=== PATIENT | female | born 1935 | race Caucasian/White ===

== ENCOUNTER 2017-08-18 11:22 | Observation (INO) | payer MEDICARE ==
[~2017-08-18] VITALS: Ht 162.6 cm; Wt 65.5 kg
[2017-08-18] VITALS (8 sets, daily range): BP systolic 83–181; BP diastolic 52–85; PULSE 78–91; RESP 16–27; O2SAT 92–96
[~2017-08-18 11:22] MED LIST: Acetaminophen PO; CARB1TAB14 PO; CEFU500T61 PO; CHOL100043 PO; CLOP75TA28 PO; DENO60DI IM; FLUT16SP NASAL; LOSA25TA21 PO; RANI150C4 PO
--- NOTE | 2017-08-18 11:25 | ED.REPORT ---
HPI-General Illness Date of Service Aug 18, 2017 ED Provider: Jose Martin Angel MD An 82 year old female with a history of Parkinson's disease, CVA, anxiety, hypertension, pneumonia and UTI is brought to the ED via EMS due to increasing weakness, which has been especially pronounced over the last two days. The pt has been having progressively more difficulty walking in recent weeks and has required a wheelchair. This morning she was unable to transfer herself from the wheelchair at all, which is abnormal for her. The pt's also reported that the pt was hallucinating and "speaking gibberish" yesterday, which he suspects is related to her Parkinson's disease. She displayed similar behavior one month ago and was evaluated in the ED. The pt's called their PCP, who recommended that they call paramedics. The pt lives at home with her and caregivers. Nursing Notes Stated Complaint: INCREASED WEAKNESS Chief Complaint: General Complaint Nursing Notes Reviewed: Yes Allergies: Coded Allergies: Penicillins (Verified Allergy, Severe, not effective after many doses, ) Quinolones (Verified Allergy, Severe, tongue swelling,tingling all over body, 07/16/15) atenolol (Verified Allergy, Severe, very dizzy, 07/16/15) ciprofloxacin (Verified Allergy, Severe, Interior burning, 04/23/16) guaifenesin (Verified Allergy, Severe, hallucinate, 04/18/12) hydrochlorothiazide (Verified Allergy, Severe, very dizzy, 04/18/12) hydrocodone (Verified Allergy, Severe, hallucinate. Tolerates codeine, 18/11) iodine (Verified Allergy, Severe, 07/17/15) meperidine (Verified Allergy, Severe, hallucinate, 04/18/12) metronidazole (Verified Allergy, Severe, swelling tongue,tingling all over body, 04/18/12) cyanocobalamin (vitamin B12) (Verified Allergy, Unknown, 07/16/15) oxycodone HCl (Verified Allergy, Unknown, UNKNOWN, 04/18/12) Uncoded Allergies: Hycotuss (Allergy, Severe, 07/17/15) hallucinations Scheduled ([D-Mannosen CranActin]) 1 CAPSULE PO QAM Acetaminophen (Acetaminophen) 325 Mg Tablet 650 MG PO BID and PRN Aspirin (Aspirin) 81 Mg Tablet 81 MG PO QAM Carbidopa/Levodopa 25-100 mg (Carbidopa/Levodopa 25-100 mg) 1 Each Tablet 2 TABLET PO QAM and QPM Carbidopa/Levodopa 25-100 mg (Carbidopa/Levodopa 25-100 mg) 1 Each Tablet 1.5 TABLET PO NOON Cholecalciferol (Vitamin D3) (Vitamin D3) 2,000 Unit Tablet 2,000 UNIT PO BID Fluticasone Propionate (Fluticasone Propionate Nasal) 16 Gm Agency.susp 1 SPRAY NASAL QAM Losartan Potassium (Losartan Potassium) 25 Mg Tablet 25 MG PO BID Ranitidine (Ranitidine) 150 Mg Capsule 150 MG PO BID General Time Seen by MD: 11:24 Chief Complaint Weakness Hx Obtained From: Patient, Spouse, EMS Arrived By: Ambulance Sudden in Onset?: No Onset Occurred: 2 days ago Symptom Duration: Since onset Recent Healthcare: Recent doctor visit Similar Sx Previous: No Past Medical History Past Medical History Notes: Patient's orthopedist is Dr. Moura Past Medical History PAST MEDICAL HISTORY: 1. Osteoporosis. 2. Lumbar compression fractures. 3. Parkinson's. 4. Anxiety. 5. Transient cereberal ischemia 6. basal cell carcinoma of skin 7. CVA 8. Arthritis 9. Pneumonia 10. Kidney stones 11. UTI 12. Depression Reports: Hypertension Past Surgical History L4 Kyphoplasty with cement bone injection Additional 2 kyphoplasties in thoracic spine Right foot and ankle Left elbow Reports: Cholecystectomy, Hysterectomy Smoking History Never Smoker Social History Alcohol Use: "Social" Drug Use: Denies drug use Other Social History: Good social support, Ambulatory Status Cane Review of Systems difficulty speaking Full Review of Systems Respiratory: Denies: Non-productive cough, Shortness of breath Cardiovascular: Denies: Chest pain GI: Denies: Abdominal pain, Vomiting Musculoskeletal: Denies: Back pain, Neck pain Skin: Denies Rash Neurologic: Reports: Weakness Psychiatric: Reports: Hallucinations, auditory, Hallucinations, visual Complete sys rev & neg: except as marked. Physical Exam Vital Signs Vital Signs Date Time Temp Pulse Resp B/P Pulse Ox O2 Delivery O2 Flow Rate FiO2 08/18/17 13:30 36.6 84 22 102/52 94 Room Air 08/18/17 12:28 89 24 83/59 93 Room Air 08/18/17 11:25 36.6 91 27 107/63 92 Initial VS: Reviewed General/Constitutional: Awake, Alert Head / Eyes: Atraumatic, Normocephalic, PERRL, EOMI ENT: Atraumatic, Airway patent, Mucous membranes moist Neck: Atraumatic, Supple, Full range of motion Respiratory / Chest: Atraumatic, Breath sounds NL, Breath sounds = bilat, No respiratory distress Cardiovascular: Heart rate NL, Regular rhythm, Heart sounds NL Abdomen: Atraumatic, Soft, Non-tender Back: Atraumatic, Full range of motion Upper Extremities Upper Extremity / MS: Atraumatic, Full range of motion Lower Extremity / Pelvis / MS: Atraumatic, Full range of motion Skin: Color NL, No rash, Warm, Dry Neurologic: Speech NL, No motor deficits, No sensory deficits left lower extremity drift oriented to person and place, not oriented to time Psychiatric: Affect NL, Mood NL Interpretation & Diagnostics Lab Results Interpretation Result Diagram: 08/18/17 1217 08/18/17 1217 Test 08/18/17 11:33 08/18/17 12:17 Urine Color Straw (YELLOW) Urine Appearance Hazy (CLEAR,HAZY) Urine pH 6.0 (5.0-8.0) Urine Specific [place] 1.005 (1.003-1.035) Urine Protein Negativemg/dL (NEG,TRACE) Urine Glucose (UA) Negativemg/dL (NEGATIVE) Urine Ketones Negativemg/dL (NEGATIVE) Urine Occult Blood Negative (NEGATIVE) Urine Nitrite Negative (NEGATIVE) Urine Bilirubin Negative (NEGATIVE) Urine Urobilinogen Normalmg/dL (NORMAL) Urine Leukocyte Esterase Negative (NEGATIVE) Urine RBC 0-2/hpf (0-2) Urine WBC 0-5/hpf (0-5) Urine Epithelial Cells Occasional/hpf (NONE-MOD) Urine Crystals None seen (NONE SEEN) Urine Bacteria Moderate/hpf (NONE-FEW) Urine Hyaline Casts None/lpf (NONE) Urine Granular Casts None seen (NONE SEEN) Urine Waxy Casts None seen (NONE SEEN) Urine Red Blood Cell Casts None seen (NONE SEEN) Urine White Blood Cell Casts None seen (NONE SEEN) Urine Mucus Present (None Seen) Urine Trichomonas None seen (NONE SEEN) Urine Yeast None (NONE SEEN) Urinalysis Comment None Urine Culture Reflexed Indicated Hold Urine Received (Received) White Blood Count 8.2th/mm3 (3.8-10.1) Red Blood Count 4.21mil/mm3 (3.90-5.20) Hemoglobin 14.0g/dL (12.0-15.6) Hematocrit 41.5% (35.0-46.0) Mean Corpuscular Volume 98.6fL (81-100) Mean Corpuscular Hemoglobin 33.3pg (27.0-35.0) Mean Corpuscular Hemoglobin Concent 33.7% (32.0-37.0) Red Cell Distribution Width 13.4% (12.3-15.4) Platelet Count 299bil/L (150-400) Neutrophils (%) (Auto) 75.1% (40-74) Lymphocytes (%) (Auto) 16.7% (14-46) Monocytes (%) (Auto) 7.5% (4-12) Eosinophils (%) (Auto) 0.2% (0-5) Basophils (%) (Auto) 0.4% (0-3) Prothrombin Time 10.3sec (8.1-12.5) Prothromb Time International Ratio 0.96ratio Sodium Level 140mEq/L (134-144) Potassium Level 4.3mEq/L (3.5-5.2) Chloride Level 102mEq/L (97-108) Carbon Dioxide Level 22mmol/L (18-29) Blood Urea Nitrogen 14mg/dL (8-27) Creatinine 0.63mg/dL (0.57-1.00) Estimat Glomerular Filtration Rate 129mL/min (>59) Glucose Level 146mg/dL (60-99) Calcium Level 9.3mg/dL (8.5-10.1) Total Bilirubin 0.4mg/dL (0.0-1.2) Aspartate Amino Transf (AST/SGOT) 10U/L (0-50) Alanine Aminotransferase (ALT/SGPT) 5U/L (0-32) Alkaline Phosphatase 93U/L (25-165) Troponin T 0.010ug/L (0.0-0.011) Total Protein 6.4g/dL (6.4-8.4) Albumin 4.0g/dL (3.4-5.0) Hold Glass Top Tube Received (Received) ECG Interpretation ECG Interpretation: normal sinus rhythm with a rate of [address]/T changes Time: 12:19 Interpreted by: ED physician CT Head Interpretation IMPRESSION: No acute intracranial disease process. Dictated by: Daysi Kingsley MD, PhD on 08/18/2017 at 11:51 Approved by: Daysi Kingsley MD, PhD on 08/18/2017 at 11:55 Interpretation / Wet Read by: Interpret - Radiologist Re-Eval/Medical Decision Med Decision/Clinical Course 82-year-old female history of Parkinson's presenting with slurred speech for 20 seconds as stated. Also with progressive worsening of gait and lower extremity strength over the last couple weeks. Her left lower extremity does have drift. Also with history of dementia. History per . CT scan of acute pathology. Labs are unremarkable. Cannot rule out TIA yesterday. Cannot rule out worsening of Parkinson's. Patient will be admitted for altered mental status workup TIA stroke workup Source of Hx: Old records Time of Eval: 13:45 Patient Status: Condition improved Re-Evaluation/Progress Note: Pt rechecked, who is resting. Radiology, diagnosis and plan for admission are discussed. The pt understands and agrees with the plan. All questions are addressed at this time. Consultation : Referral / Consult Name: Constantino Small MD Consulted With: Hospitalist Call Returned at: 13:51 [employer] Manager: Agrees with eval, Agrees with plan, Accepts admit Note: Spoke with Dr. Small, hospitalist, regarding pt's case. Dr. Small agrees with the evaluation and agrees to admit the pt. Counseled Regarding: Diagnosis, Lab results, Need for admission Discharge & Departure Primary Impression: TIA (transient ischemic attack) Transient cerebral ischemia type: unspecified Qualified Code: G45.9 - Transient cerebral ischemic attack, unspecified Disposition: ADMITTED TO HOSPITAL Discharge Condition All VS Reviewed: Yes Condition: Stable Referrals: Erin Dover MD (PCP) Scribe Attestation Portions of this note were transcribed by Norma Persaud. I, Dr. Angel personally performed the history, physical exam and medical decision-making; I reviewed and confirmed the accuracy of the information in the transcribed note. copies to: Erin Dover MD Risk Factors NIH Stroke Scale Level of Consciousness: Alert and responsive (0) Ask Month & Age: 1 question right (1) Open/Close Eyes/Hand Banking Representative: Performs both tasks (0) Horizontal EO Movements: None (0) Visual Avery: No visual loss (0) Facial Palsy: Normal symmetry (0) Right Arm Motor Drift (10s): No drift 10 sec (0) Left Arm Motor Drift (10s): No drift 10 sec (0) Right Leg Motor Drift (5s): No drift 5 sec (0) Left Leg Motor Drift (5s): Drift, not touch bed (1) Limb Ataxia FNF/Heel-Green: No ataxia (0) Sensation (Arms/Legs/Face): No sensory loss (0) Language Aphasia: No aphasia, normal (0) Dysarthria: No dysarthria, normal (0) Extinction/Inattention: No exctinct/inattent (0) NIHSS Score: 2 Time NIHSS Performed: 11:35 Date NIHSS Performed: Aug 18, 2017 Jose Martin Angel MD Aug 18, 2017 11:25 NORMA PERSAUD Aug 18, 2017 11:45
[2017-08-18] MEDS ORDERED: 0.9% Sodium Chloride 250 ML ONE (12:23)
[2017-08-18 12:25] LABS: BASOPHILS % (AUTO) 0.4 % (0-3); EOSINOPHILS % (AUTO) 0.2 % (0-5); MONOCYTES % (AUTO) 7.5 % (4-12); Mean Corpuscular Hemoglobin 33.3 pg (27.0-35.0); Mean Corpuscular Volume 98.6 fL (81-100); NEUTROPHILS % (AUTO) 75.1 % (40-74); Platelet Count 299 bil/L (150-400)
[2017-08-18 12:45] LABS: INR 0.96 ratio
[2017-08-18 12:52] LABS: TROPONIN T 0.01 ug/L (0.0-0.011)
--- NOTE | 2017-08-18 12:57 | DRSVH ---
PROCEDURE: CT BRAIN WITHOUT CONTRAST ([id number]) INDICATIONS: dysarthria TECHNIQUE: Noncontrast 4.5 mm thick angled axial sections acquired from the foramen magnum to the vertex, with c oronal reformats. COMPARISON: [facility], CT, CT BRAIN WO CON, 07/22/2016, 21:07. FINDINGS: Image quality: Excellent. CSF spaces: Basal cisterns are patent. No extra-axial fluid collections. The ventricles are symmet nader in size and shape. Brain: No intracranial bleeds or masses. There is cerebral volume loss for age, with resultant vent ricular and sulcal prominence. There are periventricular and deep white matter chronic small vessel ischemic changes. Chronic left cerebellar hemisphere lacunar infarct noted. There is intracranial in ternal carotid artery and vertebral artery atherosclerosis. Skull and face: Calvarium and visualized facial bones appear intact, without suspicious lesions. Sinuses: Visualized sinuses and mastoids are clear. IMPRESSION: No acute intracranial disease process. Dictated by: Daysi Kingsley MD, PhD on 08/18/2017 at 11:51 Approved by: Daysi Kingsley MD, PhD on 08/18/2017 at 11:55
[2017-08-18] MEDS ORDERED: CHOL200025 PO (13:36)
[2017-08-18] MEDS ORDERED: ASPI-973 PO (13:36)
[2017-08-18] MEDS ORDERED: ACET325T51 PO (13:36)
[2017-08-18] MEDS ORDERED: [UNRECOGNIZED DRUG - OTHER] PO (13:36)
[2017-08-18] MEDS ORDERED: Alum-Mag Hydrox-Simeth 30 mL Suspension PO PRN (13:55)
[2017-08-18] MEDS ORDERED: Ondansetron 2 mg/mL 2 mL Inj IVPUSH PRN (13:55)
[2017-08-18] MEDS ORDERED: Labetalol 5 mg/mL 20 mL Inj IVPUSH PRN (14:10)
[2017-08-18] MEDS ORDERED: Polyethylene Glycol (PEG) 17 Gm Powder PO PRN (14:10)
[2017-08-18 14:12] LABS: APPEARANCE,URINE HAZY (CLEAR,HAZY); COLOR,URINE STRAW (YELLOW); OCCULT BLOOD,URINE NEGATIVE (NEGATIVE); UROBILINOGEN,URINE NORMAL (NORMAL)
--- NOTE | 2017-08-18 15:23 | NUR ---
NUTRITION ASSESSMENT: ASSESS: 82YO F admit for CVA v TIA v worsening parkinsons workup. ST eval pending. PMHX: Parkinson,CVA,HTN,Pna,UTI DIET: NPO LABS: Glu 146, A1c pending MEDS: Reviewed GI: No BM WEIGHT: 65.0kg BMI: 24.6 EST.NEEDS: 1600-1950kcal, 65-80g pro (25-30kcal/kg;1.0-1.2g/kg pro) NUTRITION DIAGNOSIS: (1) No diagnosis at this time. INTERVENTION: (1) Monitor for diet advancement, diet texture recommendations per ST. MONITOR/EVALUATE: Diet per ST, NPO status, labs, POC. F/U per moderate risk.
[2017-08-18 15:59] LABS: BASOPHILS % (AUTO) 0.3 % (0-3); EOSINOPHILS % (AUTO) 0.1 % (0-5); MONOCYTES % (AUTO) 10.4 % (4-12); Mean Corpuscular Hemoglobin 32.9 pg (27.0-35.0); Mean Corpuscular Volume 98.6 fL (81-100); Platelet Count 281 bil/L (150-400)
[2017-08-18] MEDS: Heparin 5,000 Unit/mL Inj SUBQ SCH (16:01)
[2017-08-18] MEDS: 0.9% Sodium Chloride 1,000 ML IV SCH (16:01)
--- NOTE | 2017-08-18 16:35 | NUR ---
Shift Note Patient received this afternoon around 1415 from ED for observation of possible stroke/TIA and stroke w/u and r/o. Patient with generalized weakness but thorough neuro exam does not show any significant findings, A & O x 3. Weakness in extremities equal on both sides. Had CT & MRI today. Speech therapy cleared her for thin liquids and a soft diet. She is a max 2 person assist to the commode. at .
--- NOTE | 2017-08-18 16:44 | PCM.HPMED ---
Subjective Date of Service Aug 18, 2017 Primary Provider: Admitting Physician: Constantino Small MD Primary Care Physician: Erin Dover MD Attending Physician: Constantino Small MD Admit Status: From the Emergency Department, 23-Hour Observation, Admit to [facility] Team Chief Complaint: Lower extremity weakness. . History of Present Illness: Deana Allan is an 82-year-old female with a past medical history significant for hypertension, Parkinson's disease, CVA, severe osteoporosis with multiple fractures including recent sacral and pelvic who presented to [facility] emergency department via EMS due to progressive weakness 2 days. The patient has a long-standing history of severe osteoporosis and was active with physical therapy until 3 months ago when she endured a sacral and pelvic fracture and was instructed by her orthopedic physician not to ambulate for an unclear amount of time. Since that time the patient has discontinued physical therapy and has had progressive weakness and is wheelchair bound. This morning she was unable to transfer herself from the wheelchair at all which is abnormal for her. The patient's also reported that she was speaking "gibberish" or word salad yesterday afternoon 08/17/2017 around 1500 for 20-30 minutes, which he suspects is related to her Parkinson's disease. She displayed similar behavior one month ago and was evaluated in the ED. The patients called her assembly inspector who recommended that they call paramedics. The patient lives at home with her and caregivers. She denies headache, vision changes, lightheadedness or dizziness, sore throat, cough chest pain, shortness of breath, abdominal pain, nausea, vomiting, fever, chills, dysuria, diarrhea or constipation. She does endorse chronic acid reflux and burning in her epigastrium in the mornings. Vital signs in the ER: Temperature 36.6. Pulse 84. Respiratory rate 22. Blood pressure 102/52. Pulse ox 94% on room air. She was given a 250 mL bolus of NS in the ED. PCP is Dr. Erin Dover. . Review of Systems: A comprehensive review of systems was conducted with the patient and found to be negative except as above in the History of Present Illness. . Allergies Coded Allergies: Penicillins (Verified Allergy, Severe, not effective after many doses, ) Quinolones (Verified Allergy, Severe, tongue swelling,tingling all over body, 07/16/15) atenolol (Verified Allergy, Severe, very dizzy, 07/16/15) ciprofloxacin (Verified Allergy, Severe, Interior burning, 04/23/16) guaifenesin (Verified Allergy, Severe, hallucinate, 04/18/12) hydrochlorothiazide (Verified Allergy, Severe, very dizzy, 04/18/12) hydrocodone (Verified Allergy, Severe, hallucinate. Tolerates codeine, 18/11) iodine (Verified Allergy, Severe, 07/17/15) meperidine (Verified Allergy, Severe, hallucinate, 04/18/12) metronidazole (Verified Allergy, Severe, swelling tongue,tingling all over body, 04/18/12) cyanocobalamin (vitamin B12) (Verified Allergy, Unknown, 07/16/15) oxycodone HCl (Verified Allergy, Unknown, UNKNOWN, 04/18/12) Uncoded Allergies: Hycotuss (Allergy, Severe, 07/17/15) hallucinations Home Medications Acetaminophen 650 mg twice a day. Aspirin 81 mg daily. Carbidopa/levodopa 96486 mg 2 tablets every morning, 1.5 tablet at noon and 2 tablets every evening. Fluticasone 1 spray intranasally daily. Losartan 25 mg twice a day. Ranitidine 150 mg twice a day. Tums PRN for acid reflux. Vitamin D3 2000 international units twice a day. D-Mannosen CranActin 1 tablet daily. . PMH 1. Severe osteoporosis with multiple fractures including ribs, compression fractures of lumbar and thoracic spine, 2 left hip fractures, sacral fracture and pelvic fracture. 2. Hypertension. 3. Parkinson's disease. 4. Anxiety. 5. Transient cerebral ischemia. 6. Basal cell carcinoma of skin. 7. CVA. 8. Osteoarthritis. 9. Pneumonia. 10. Nephrolithiasis. 11. Urinary tract infection with bacteremia on IV antibiotics 3 months. 12. Depression. 13. Vitamin D deficiency. 14. Allergic rhinitis. 15. GERD. . Surgical History 1. L4 kyphoplasty with cement bone injection and 2 kyphoplasty's and thoracic spine. 2. Right foot and ankle 3. Left elbow 4. Cholecystectomy. 5. Hysterectomy with bilateral salpingo-oophorectomy . Family History Father who had heart disease. Mother who of Alzheimer's disease. Sister who of liver cancer at 66 years old. . Social History Hx Alcohol Use: Yes (4 onces of wine every evening) Hx Substance Use: No Hx Tobacco Use: Yes Smoking Status: Former Smoker (1 PPD x 30 years) Additional Information She is . She has 1 son and 1 daughter who are both healthy. Exam Vital Signs Vital Sign - Last Date Time Temp Pulse Resp B/P Pulse Ox O2 Delivery O2 Flow Rate FiO2 08/18/17 13:30 36.6 84 22 102/52 94 Room Air Exam General: Elderly thin female lying in bed in no acute distress, well-developed, well-nourished, appropriately interactive. HEENT: Normocephalic, atraumatic. External ears without defect. Pupils equal, round, and reactive to light. Anicteric sclerae, moist conjunctivae, and no lid lag. Oropharynx free of erythema and cobble stoning with moist mucosa. Neck: Supple with full range of motion. No jugular venous distension. No bruits. No lymphadenopathy or thyromegaly. Cardiovascular: Regular rate and rhythm without murmurs, rubs, or gallops appreciated Pulmonary: Clear to auscultation bilaterally with no crackles, wheezes, or rhonchi. Normal respiratory effort with no use of accessory muscles. Abdomen: Bowel tones present. Soft, nontender, nondistended. No hepatosplenomegaly or masses appreciated. Extremities: No clubbing, cyanosis, or edema. Generalized muscle weakness +4 out of 5 in both upper and lower extremities. Skin: Normal temperature, turgor, and texture; no rash, ulcers, or subcutaneous nodules appreciated. Neurological: Cranial nerves grossly intact. No dysmetria or motor drift. Normal plantar reflexes bilaterally. Reflexes, coordination, and sensory function within normal limits. Known gait impairment and severe deconditioning. Psychiatric: Normal mood and affect. Alert and oriented to person, place, and time. . Lab and Diagnostics Labs Item Value Date Time Urine Color Straw 08/18/17 1133 Urine Appearance Hazy 08/18/17 113 Urine pH 6.0 08/18/17 1133 Urine Specific [place] 1.005 08/18/17 1133 Urine Protein Negative mg/dL 08/18/17 1133 Urine Glucose (UA) Negative mg/dL 08/18/17 113 Urine Ketones Negative mg/dL 08/18/17 1133 Urine Occult Blood Negative 08/18/17 1133 Urine Nitrite Negative 08/18/17 1133 Urine Bilirubin Negative 08/18/17 1133 Urine Urobilinogen Normal mg/dL 08/18/17 1133 Urine Leukocyte Esterase Negative 08/18/17 1133 Urine RBC 0-2 /hpf 08/18/17 1133 Urine WBC 0-5 /hpf 08/18/17 1133 Urine Epithelial Cells Occasional /hpf 08/18/17 1133 Urine Crystals None seen 08/18/17 1133 Urine Bacteria Moderate /hpf 08/18/17 1133 Urine Hyaline Casts None /lpf 08/18/17 1133 Urine Granular Casts None seen 08/18/17 1133 Urine Waxy Casts None seen 08/18/17 1133 Urine Red Blood Cell Casts None seen 08/18/17 1133 Urine White Blood Cell Casts None seen 08/18/17 1133 Urine Mucus Present 08/18/17 1133 Urine Trichomonas None seen 08/18/17 1133 Urine Yeast None 08/18/17 1133 Urinalysis Comment None 08/18/17 1133 Urine Culture Reflexed Indicated 08/18/17 1133 Item Value Date Time Prothrombin Time 10.3 sec 08/18/17 1217 Prothromb Time International Ratio 0.96 ratio 08/18/17 1217 Item Value Date Time Calcium Level 9.3 mg/dL 08/18/17 1217 Total Bilirubin 0.4 mg/dL 08/18/17 1217 Aspartate Amino Transf (AST/SGOT) 10 U/L 08/18/17 1217 Alanine Aminotransferase (ALT/SGPT) 5 U/L 08/18/17 1217 Alkaline Phosphatase 93 U/L 08/18/17 1217 Troponin T 0.010 ug/L 08/18/17 1217 Total Protein 6.4 g/dL 08/18/17 1217 Albumin 4.0 g/dL 08/18/17 1217 Result Diagram: 08/18/17 1217 08/18/17 1217 X-Rays, CTs and MRIs CT BRAIN WITHOUT CONTRAST IMPRESSION: No acute intracranial disease process. Dictated by: Daysi Kingsley MD, PhD on 08/18/2017 at 11:51 . 12-lead ECG EKG: Sinus rhythm, heart rate 79, normal axis, normal intervals, normal R-wave progression, peaked T waves and lead V2 and V3, no pathological Q waves or acute ischemic changes such as ST elevation or depression. Assessment & Plan Deana Allan is an 82-year-old female with a past medical history significant for hypertension, Parkinson's disease, CVA, severe osteoporosis with multiple fractures including recent sacral and pelvic who presented to [facility] emergency department via EMS due to increasing weakness 2 days. 1. TIA, under evaluation. - The patient has been wheelchair-bound for the last 2 months but presented with progressive weakness to the extent she was unable to transfer out of her wheelchair as she normally does. She also had word salad the day before lasting 20-30 minutes and spontaneously resolving. - Differential diagnosis includes TIA versus profound deconditioning versus Parkinson's disease. - Clinical exam was nonfocal. - Continue aspirin 81 mg daily. - Ordered fasting lipid panel tomorrow morning. - Ordered physical therapy, occupational therapy, and speech therapy. - CT brain without contrast did not demonstrate any acute intracranial abnormalities, as above. - Ordered MR stroke protocol, pending. - Ordered echocardiogram, pending. - Continue to monitor closely on telemetry. - Ordered urinalysis, pending. - Allow for permissive hypertension. Ordered PRN Labatolol for SBP > 220 or DBP >110. - Continue neuro checks for the next 24 hours. - She will need to follow up with her orthopedic physician as an outpatient to discuss physical therapy and weightbearing of this is appropriate in the future. Chronic problems: 2. Hypertension, present on admission. Stable. - Held losartan 25 mg twice a day. May restart tomorrow after 24 hours of permissive hypertension. 3. Parkinson's disease, present on admission. Stable. - Continue Carbidopa/levodopa 25-100 mg 2 tablets every morning, 1.5 tablet at noon and 2 tablets every evening. - Ordered PT and OT as above. - Ordered a AUDIT MANAGER evaluation for issues regarding caregiving and deconditioning. 4. Severe osteoporosis, present on admission. Presumed stable. - The patient has a history of multiple fractures including ribs, compression fractures of lumbar and thoracic spine, 2 left hip fractures, sacral fracture and pelvic fracture. - Patient underwent Forteo for 22 months and is scheduled to start Prolia with her assembly inspector Dr. Thomas. 5. Vitamin D deficiency, present on admission. Stable. - Continue vitamin D3 2000 international units twice daily. 6. GERD, present on admission. Stable. - Continue equivalent of ranitidine 150 mg twice daily. - Continue Tums when necessary. 7. Allergic rhinitis, present on admission. Stable. - Continue Flonase 1 spray intranasally daily. 8. Depression and anxiety, present on admission. Stable. - Not medically treated. PRN antiemetics: Zofran and Maalox. PRN bowel regimen: Senna and MiraLAX. PRN analgesics: Tylenol. Patient is admitted under observation status with expected length of stay less than 2 midnights due to severity of presenting symptoms, risk of adverse event, and complexity of treatment plan. . VTE Prophylaxis: Sub-Q Heparin (Unfractionated) Resuscitation Status: DNR/DNI:Do Not Resuscitate/Intubate copies to: Erin Dover MD; Henny Abernathy MD, [place] M DO Aug 18, 2017 14:16
--- NOTE | 2017-08-18 17:11 | NUR ---
Evaluation completed. Please go to "Notes" then click on "Assessments and Notes" (bottom left corner of screen). Then select appropriate discipline tab on top of screen.
[2017-08-19] VITALS (7 sets, daily range): BP systolic 103–190; BP diastolic 67–84; PULSE 74–82; RESP 17–20; O2SAT 82–98
[2017-08-19] MEDS: Heparin 5,000 Unit/mL Inj SUBQ SCH ×2 (00:31→08:35)
[2017-08-19] MEDS: 0.9% Sodium Chloride 1,000 ML IV SCH (02:33)
--- NOTE | 2017-08-19 05:49 | NUR ---
Shift Note Assumed pt care at 1900, pt a/o x4, with notable intermittent upper body tremors,r/t history of Parkinsons, q4 neurovascular checks otherwise wnl, 2pa to bedside commode,pt refused scds tonight, denies pain and discomfort, brain MRI pending results, echo pending, call light in reach at all times.
[2017-08-19 06:39] LABS: BASOPHILS % (AUTO) 0.5 % (0-3); MONOCYTES % (AUTO) 11.8 % (4-12); Mean Corpuscular Hemoglobin 33.2 pg (27.0-35.0); Mean Corpuscular Volume 99.5 fL (81-100); NEUTROPHILS % (AUTO) 50.8 % (40-74); Platelet Count 272 bil/L (150-400)
[2017-08-19] MEDS ORDERED: Fluticasone 0.05% 15 Spray/2 Gm 16 Gm Nasal Spray NASAL SCH (08:30)
--- NOTE | 2017-08-19 11:09 | PCM.PNMED ---
Subjective Date of Service Aug 19, 2017 Subjective Patient feels better today. Exam Vital Signs Vital Sign - Last Date Time Temp Pulse Resp B/P Pulse Ox O2 Delivery O2 Flow Rate FiO2 08/19/17 08:26 82 08/19/17 07:00 184/72 08/19/17 06:26 36.7 17 95 Room Air Intake and Output 08/18/17 08/18/17 08/19/17 Cumulative From/Thru 15:00 23:00 07:00 08/18/17 11:25 - 08/19/17 06:14 Intake Total 250 ml 1113 ml 1363 ml Output Total 200 ml 850 ml 1050 ml Balance 250 ml -200 ml 263 ml 313 ml Intake Oral 100 ml 100 ml IV Total 250 ml 1013 ml 1263 ml Output Urine Total 200 ml 850 ml 1050 ml Exam GENERAL: Alert, not in distress, cooperative HEAD: atraumatic, normocephalic, no bruises. EYES: JEET, EOMI, anicteric, able to fully open and close eyelids SKIN: Skin color normal, turgor normal. No visible rashes or lesions. EAR, NOSE, MOUTH, THROAT: Lips, oral mucosa, tongue gums, oropharynx are moist , pink, no lesions. Ears normal appearance, no lesions. NECK: no jugulovenous distention; supple ROM normal. RESPIRATORY: Lungs clear to auscultation. Good diaphragmatic excursion. CARDIAC: normal S1 and S2; no rubs, murmurs, or gallops; regular rate and rhythm ABDOMEN: Abdomen soft, non-tender. BS normal. No masses or organomegaly. MUSCULOSKELETAL: ROM full, muscles are not tender EXTREMITIES: no pitting edema in LE, no new deformities or skin discoloration. NEURO: Alert, oriented X 2, Sensation grossly intact., Cranial nerves II-XII intact, Grossly normal motor function. PULSES: 2+ radial, 2+ carotid REVIEW OF SYSTEMS: GENERAL: no malaise, no fevers., SEE HPI HEENT: Negative for frequent or significant headaches All other reviewed and negative other than HPI. IVs and Medications Medications Reviewed: Medications were reviewed in detail Lab and Diagnostics Result Diagram: 08/19/17 0630 08/19/17 0630 X-Rays, CTs and MRIs CT BRAIN WITHOUT CONTRAST IMPRESSION: No acute intracranial disease process. Dictated by: Daysi Kingsley MD, PhD on 08/18/2017 at 11:51 . 12-lead ECG EKG: Sinus rhythm, heart rate 79, normal axis, normal intervals, normal R-wave progression, peaked T waves and lead V2 and V3, no pathological Q waves or acute ischemic changes such as ST elevation or depression. Assessment & Plan Deana Allan is an 82-year-old female with a past medical history significant for hypertension, Parkinson's disease, CVA, severe osteoporosis with multiple fractures including recent sacral and pelvic who presented to [facility] emergency department via EMS due to increasing weakness 2 days. Possible CVA(TIA vs stroke)versus Parkinson's disease. - The patient has been wheelchair-bound for the last 2 months but presented with progressive weakness to the extent she was unable to transfer out of her wheelchair as she normally does. She also had word salad the day before lasting 20-30 minutes and spontaneously resolving. - CT brain without contrast did not demonstrate any acute intracranial abnormalities - EKG- personally reviewed, significant for sinus rhythm with heart rate 79, MS 120, QRS D 89, QTC 430 Plan - Continue aspirin 81 mg daily. - physical therapy, occupational therapy, and speech therapy. - MR stroke protocol, pending. - echocardiogram, pending. - Continue to monitor closely on telemetry. - Continue neuro checks for now - She will need to follow up with her orthopedic physician as an outpatient to discuss physical therapy and weightbearing of this is appropriate in the future. Hypertension - BP elevated - resume home meds, add amlodipine Parkinson's disease - Stable. - Continue Carbidopa/levodopa 25-100 mg 2 tablets every morning, 1.5 tablet at noon and 2 tablets every evening. - PT and OT Severe osteoporosis. Vitamin D deficiency - Presumed stable. - The patient has a history of multiple fractures including ribs, compression fractures of lumbar and thoracic spine, 2 left hip fractures, sacral fracture and pelvic fracture. - Patient underwent Forteo for 22 months and is scheduled to start Prolia with her asset protection assistant Dr. Thomas. - Continue vitamin D3 2000 international units twice daily. GERD - Stable. - Continue equivalent of ranitidine 150 mg twice daily. - Continue Tums when necessary. Allergic rhinitis - Stable. - Continue Flonase 1 spray intranasally daily. DVT PROPHYLAXIS: Heparin Code status: Patient is likely to be DNR/DNI Disposition: discharge after patient improves. Plan of care discussed with night hospitalist ; Labs, radiology tests, Tele and ECG reviewed. Plan of care, medication side effects, home medication, diagnostic procedures and available alternatives were discussed and reviewed with patient. All questions answered. Patient verbalized understanding, approved and agreed to plan of care. . VTE Prophylaxis: Sub-Q Heparin (Unfractionated) VTE Mechanical Devices: Intermittant Pneumatic CD Resuscitation Status: DNR/DNI:Do Not Resuscitate/Intubate Ashkan Vizcaino MD Aug 19, 2017 11:09 Ashkan Vizcaino MD Aug 19, 2017 11:09
--- NOTE | 2017-08-19 11:56 | DRSVH ---
PROCEDURE: MRI STROKE PROTOCOL ([id number]) Pre- and post-contrast brain MRI, non-contrast brain MR angiogram, pre- and postcontrast neck MR liz ogram INDICATIONS: lower extremity weakness TECHNIQUE: Brain: Noncontrast axial T1 spin echo, axial T2 fast spin echo, sagittal and axial FLAIR, coronal T2 fast spin echo, axial gradient echo, axial diffusion and ADC through the brain. After the administr ation of contrast, axial 3D VIBE of the cranial vasculature and brain. Brain MRA: Non-contrast 3-D time of flight MR angiogram, with multiple amejwtd-ccrhfogxb-etnmvmspme (MIP) reformats performed. Neck MRA: Axial and sagittal TruFISP through the neck. Coronal dynamic MR angiogram during administ ration of contrast in the arterial and venous phases, with 3-dimenstional lommaxe-voxzmntzx-gaagtbqup n (MIP) reformats constructed from subtraction images. COMPARISON: [facility], MR, MR STROKE PROTOCOL, 07/17/2015, 9:50. [facility] , CT, CT BRAIN WO CON, 08/18/2017, 12:38. [facility], MR, MR STROKE PROTOCOL, 07/23/2016, 10:20. FINDINGS: Image quality: Excellent. BRAIN: CSF spaces: Ventricles are normal in size and shape. Basal cisterns are patent. No extra-axial flu id collections. Brain: No intracranial bleeds or mass effects. Boone-white matter interface is normal. Diffusion we ighted images show no acute ischemic insults. Brainstem appears normal. Brain parenchymal volume lo ss and chronic small vessel ischemic changes are seen. Normal intravascular flow voids are present. No abnormal intracranial enhancement. 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 When discovered in isolation, this is considered to be a developmental variant of no clinical consequence. Skull and face: Calvarial marrow signal is normal. Orbits appear normal. Note is made of bilateral lens replacements. Sinuses: Sinuses and mastoids are clear. BRAIN MR ANGIOGRAM: Anterior circulation: Intracranial internal carotid arteries are normal in size and enhancement. Th e flow within the paired anterior cerebral arteries is normal and symmetric. There is minimal narrow ing seen of the distal right M1 segment. This appears improved compared to the prior examination. T he flow within the middle cerebral arteries is otherwise normal and symmetric. The anterior communic ating artery is seen. No aneurysms are seen. Posterior circulation: The visualized portions of the vertebral arteries demonstrate normal caliber. The distal vertebral arteries only faintly join to form the basilar artery. The left vertebral art dang largely terminates in a left posterior inferior cerebral artery. Minimal narrowing can be seen i nvolving the inferior basilar artery. The flow within the posterior cerebral arteries is normal and symmetric. NECK MR ANGIOGRAM: Carotids: Incidental note is made of a common origin of the right brachiocephalic artery and the lef t common carotid artery (bovine type arch). This is considered to be a developmental variant of no cl inical consequence. The origins of the common carotid arteries appear patent. The calibers and cou rses of both common carotid arteries are normal. The bifurcation regions appear normal bilaterally. The internal carotid arteries demonstrate normal course and caliber. Posterior circulation: The origins of the vertebral arteries appear patent. The proximal vertebral arteries are tortuous. More superior portions of both vertebral arteries demonstrate normal course a nd caliber, and join to form a normal appearing basilar artery. Miscellaneous: Subclavian arteries appear patent. Pre-contrast images through the neck show no soft tissue abnormalities. IMPRESSION: BRAIN MRI: No findings of acute or subacute infarction can be seen. Note is made of age-appropriate brain parenchymal volume loss and chronic small vessel ischemic hansen es. 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 BRAIN MR ANGIOGRAM: Minimal narrowing of the distal right M1 segment. Minimal narrowing of the inferior basilar artery. The vertebral arteries only faintly join to form the basilar artery. The left vertebral artery large ly terminates in a left posterior inferior cerebellar artery. NECK MR ANGIOGRAM: No hemodynamically significant stenosis of the carotid arteries can be seen. No p roximal vertebral artery stenosis can be seen. Bovine type aortic branching pattern incidentally noted. The estimate of stenosis included in the report of the imaging study was calculated using the NASCET method Dictated by: Chalino Hamm M.D. on 08/18/2017 at 16:26 Approved by: Chalino Hamm M.D. on 08/18/2017 at 16:37
--- NOTE | 2017-08-19 12:10 | NUR ---
Evaluation completed. Please go to "Notes" then click on "Assessments and Notes" (bottom left corner of screen). Then select appropriate discipline tab on top of screen.
--- NOTE | 2017-08-19 12:16 | NUR ---
Social Work: Initial Assessment Data: See initial assessment. Patient is an 82 year old female who was admitted on 08/18/17 for TIA. Patient's insurance is Medicare and [employer]. Patient's PCP is Erin Dover MD. EMR reviewed. SW met with patient to discuss discharge planning. SW role explained. Patient states that he resides with her in a one story home located in [place]. Patient considers her spouse Shaggy to be her main support person. Patient confirms that Shaggy is her DPOA and that AD have been completed on her behalf. Patient states that she is I at baseline with the assistance of a cane and walker. Patient states that she does not drive and relies on her family for transportation assistance. Patient states that she has received home health RN, PT, and OT in the past but is unable to remember the name of the agency. Patient also confirms that she has been to [facility] and [facility] in the past. Patient denies having [facility] care insurance or VA benefits. Upon discharge, patient states that her spouse and son will assist with transporting her home. SW provided patient with a discharge planning checklist booklet and encouraged her to call with any questions or concerns. Phone number provided. SW will continue to follow. Assessment: Patient will return home with spouse when medically stable. Plan: Patient will return home with spouse when medically stable. Transportation will be provided by spouse and son. SW will continue to follow for additional needs. BREEZY Mcbride Addendum: 08/19/17 at 1229 by FELA HERNANDEZ Amended: Links added.
[2017-08-19] MEDS ORDERED: ATOR20TA65 PO (14:21)
[2017-08-19] MEDS ORDERED: AMLO5TAB2 PO ×2 (14:21→14:23)
--- NOTE | 2017-08-19 14:25 | PCM.DIMED ---
Discharge Instructions Date of Service Aug 19, 2017 Dates of Hospitalization Aug 18, 2017 at 13:51 Discharge Diagnosis Discharge Diagnosis Possible TIA Diet Discharge Diet: Heart Healthy Activity Discharge Activity: Other (follow-up with your orthopedic surgeon for further recommendations) Call your provider Call your provider for: Fever or Chills, Shortness of breath, Bleeding, Chest pain, Vomitting, Excessive diarrhea, Weakness (unilateral) Patient Instructions Patient Instructions Follow-up with primary care provider in 2-3 days after discharge Follow-up with PCP in: Other (2-3 days after discharge) Ashkan Vizcaino MD Aug 19, 2017 14:25
--- NOTE | 2017-08-19 14:33 | PCM.DC.MED ---
Discharge Summary Date of Service Aug 19, 2017 Dates of Hospitalization Date of Hospital Admission Aug 18, 2017 at 13:51 Date of Discharge: Aug 19, 2017 Providers: Admitting Physician: Constantino Small MD Primary Care Physician: Erin Dover MD Attending Physician: Ashkan Vizcaino MD Diagnosis at Time of Discharge Diagnosis at Time of Discharge Possible TIA Procedures XRay, CTs & MRIs CT BRAIN WITHOUT CONTRAST IMPRESSION: No acute intracranial disease process. Dictated by: Daysi Kingsley MD, PhD on 08/18/2017 at 11:51 BRAIN MRI: No findings of acute or subacute infarction can be seen. Note is made of age-appropriate brain parenchymal volume loss and chronic small vessel ischemic changes. 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 BRAIN MR ANGIOGRAM: Minimal narrowing of the distal right M1 segment. Minimal narrowing of the inferior basilar artery. The vertebral arteries only faintly join to form the basilar artery. The left vertebral artery largely terminates in a left posterior inferior cerebellar artery. NECK MR ANGIOGRAM: No hemodynamically significant stenosis of the carotid arteries can be seen. No proximal vertebral artery stenosis can be seen. Bovine type aortic branching pattern incidentally noted. The estimate of stenosis included in the report of the imaging study was calculated using the NASCET method . ECG 12 Lead EKG: Sinus rhythm, heart rate 79, normal axis, normal intervals, normal R-wave progression, peaked T waves and lead V2 and V3, no pathological Q waves or acute ischemic changes such as ST elevation or depression. Hospital Course Deana Allan is an 82-year-old female with a past medical history significant for hypertension, Parkinson's disease, CVA, severe osteoporosis with multiple fractures including recent sacral and pelvic who presented to [facility] emergency department via EMS due to increasing weakness 2 days. she was unable to transfer herself from the wheelchair at all which is abnormal for her. The patient's also reported that she was speaking "gibberish" or word salad yesterday afternoon 08/17/2017 around 1500 for 20-30 minutes, which he suspects is related to her Parkinson's disease. She displayed similar behavior one month ago and was evaluated in the ED. The patients called her sales agent insurance who recommended that they call paramedics. The patient has a long-standing history of severe osteoporosis and was active with physical therapy until 3 months ago when she endured a sacral and pelvic fracture and was instructed by her orthopedic physician not to ambulate for an unclear amount of time. Since that time the patient has discontinued physical therapy and has had progressive weakness and is wheelchair bound. CT head showed chronic changes. MRI and MRA did not show stroke or significant stenosis. Physical therapy with the patient and advised that the patient can be discharged home safely. I discussed with her and he would like to take the patient home. They will follow up with her PCP. They did not want to wait for echocardiography. Patient's blood pressure was elevated during this admission. I added amlodipine by mouth home medications. Physical exam: pedro was seen and examined on the day of discharge. After patient improved she was discharged home with recommendation to follow up with her PCP and orthopedic surgeon for further management of her medical problems. Patient Condition @ Discharge: good Discharge Disposition: home Discharge Diet: regular diet, heart healthy, low fat, low salt, high fiber Information Provided to Patient: information about discharge medications Discharge Medications: I discussed with patient medication dosage, usage, goals of therapy, side effects, alternatives. During discharge I discussed with the patient and her and of care and discharge. TIME SPENT IN DISCHARGE ACTIVITY: activity greater then 30 minutes spent in discharge activity. 1. Discussed with patient/ family re: discharge plan of care/treatment, and follow up care/services. 2. Patient/family agreed with discharge plan and further plan of care, all questions were answered/addressed, no further questions at the time of discharge. . Exam Vital Signs (Last) Date Time Temp Pulse Resp B/P Pulse Ox O2 Delivery O2 Flow Rate FiO2 08/19/17 11:55 36.4 81 18 103/67 95 Room Air Test 08/18/17 11:33 08/18/17 12:17 08/19/17 06:30 Urine Color Straw (YELLOW) Urine Appearance Hazy (CLEAR,HAZY) Urine pH 6.0 (5.0-8.0) Urine Specific [place] 1.005 (1.003-1.035) Urine Protein Negativemg/dL (NEG,TRACE) Urine Glucose (UA) Negativemg/dL (NEGATIVE) Urine Ketones Negativemg/dL (NEGATIVE) Urine Occult Blood Negative (NEGATIVE) Urine Nitrite Negative (NEGATIVE) Urine Bilirubin Negative (NEGATIVE) Urine Urobilinogen Normalmg/dL (NORMAL) Urine Leukocyte Esterase Negative (NEGATIVE) Urine RBC 0-2/hpf (0-2) Urine WBC 0-5/hpf (0-5) Urine Epithelial Cells Occasional/hpf (NONE-MOD) Urine Crystals None seen (NONE SEEN) Urine Bacteria Moderate/hpf (NONE-FEW) Urine Hyaline Casts None/lpf (NONE) Urine Granular Casts None seen (NONE SEEN) Urine Waxy Casts None seen (NONE SEEN) Urine Red Blood Cell Casts None seen (NONE SEEN) Urine White Blood Cell Casts None seen (NONE SEEN) Urine Mucus Present (None Seen) Urine Trichomonas None seen (NONE SEEN) Urine Yeast None (NONE SEEN) Urinalysis Comment None Urine Culture Reflexed Indicated Hold Urine Received (Received) Prothrombin Time 10.3sec (8.1-12.5) Prothromb Time International Ratio 0.96ratio Hemoglobin A1c 5.7% (4.8-5.6) Magnesium Level 2.2mg/dL (1.6-2.6) Total Bilirubin 0.4mg/dL (0.0-1.2) Aspartate Amino Transf (AST/SGOT) 10U/L (0-50) Alanine Aminotransferase (ALT/SGPT) 5U/L (0-32) Alkaline Phosphatase 93U/L (25-165) Troponin T 0.010ug/L (0.0-0.011) Total Protein 6.4g/dL (6.4-8.4) Albumin 4.0g/dL (3.4-5.0) Hold Glass Top Tube Received (Received) White Blood Count 6.0th/mm3 (3.8-10.1) Red Blood Count 3.97mil/mm3 (3.90-5.20) Hemoglobin 13.2g/dL (12.0-15.6) Hematocrit 39.5% (35.0-46.0) Mean Corpuscular Volume 99.5fL (81-100) Mean Corpuscular Hemoglobin 33.2pg (27.0-35.0) Mean Corpuscular Hemoglobin Concent 33.4% (32.0-37.0) Red Cell Distribution Width 13.3% (12.3-15.4) Platelet Count 272bil/L (150-400) Neutrophils (%) (Auto) 50.8% (40-74) Lymphocytes (%) (Auto) 35.7% (14-46) Monocytes (%) (Auto) 11.8% (4-12) Eosinophils (%) (Auto) 1.0% (0-5) Basophils (%) (Auto) 0.5% (0-3) Sodium Level 141mEq/L (134-144) Potassium Level 4.0mEq/L (3.5-5.2) Chloride Level 106mEq/L (97-108) Carbon Dioxide Level 25mmol/L (18-29) Blood Urea Nitrogen 10mg/dL (8-27) Creatinine 0.55mg/dL (0.57-1.00) Estimat Glomerular Filtration Rate 151mL/min (>59) Glucose Level 91mg/dL (60-99) Calcium Level 8.7mg/dL (8.5-10.1) Triglycerides Level 107mg/dL (0-149) Cholesterol Level 199mg/dL (100-199) LDL Cholesterol, Calculated 121.600mg/dL (0-99) VLDL Cholesterol 21.400mg/dL HDL Cholesterol 56mg/dL (>39) Cholesterol/HDL Ratio 3.55 (0.0-4.4) Discharge Medications Discharge Medications ([D-Mannosen CranActin]) 1 CAPSULE PO QAM (Reported) Acetaminophen (Acetaminophen) 325 Mg Tablet 650 MG PO BID (Reported) and PRN Amlodipine (Amlodipine) 5 Mg Tablet 2.5 MG PO DAILY Prescribed by: RUDDY HOBBS MD Aspirin (Aspirin) 81 Mg Tablet 81 MG PO QAM (Reported) Atorvastatin Calcium (Atorvastatin Calcium) 20 Mg Tablet 20 MG PO DAILY Prescribed by: RUDDY HOBBS MD Carbidopa/Levodopa 25-100 mg (Carbidopa/Levodopa 25-100 mg) 1 Each Tablet 2 TABLET PO QAM and QPM (Reported) Carbidopa/Levodopa 25-100 mg (Carbidopa/Levodopa 25-100 mg) 1 Each Tablet 1.5 TABLET PO NOON (Reported) Cholecalciferol (Vitamin D3) (Vitamin D3) 2,000 Unit Tablet 2,000 UNIT PO BID ( Reported) Fluticasone Propionate (Fluticasone Propionate Nasal) 16 Gm [place].susp 1 SPRAY NASAL QAM (Reported) Losartan Potassium (Losartan Potassium) 25 Mg Tablet 25 MG PO BID (Reported) Ranitidine (Ranitidine) 150 Mg Capsule 150 MG PO BID (Reported) Followup Plan Discharge Diet: Heart Healthy Discharge Activity: Other (follow-up with your orthopedic surgeon for further recommendations) Patient Instructions Follow-up with primary care provider in 2-3 days after discharge Follow-up with PCP in: Other (2-3 days after discharge) Ashkan Vizcaino MD Aug 19, 2017 14:33
--- NOTE | 2017-08-19 15:40 | NUR ---
Discharge at 1535 Reviewed DC instructions with patient and . Answered all questions. Encouraged to keep BP log to bring to upcoming appt with PCP 09/01/17. Reviewed with MD as Echo not done, reported pt/ wanted to go home and should be done as an outpt. Pt taken out in w/ch to private auto to home with . All belongings taken. Addendum: 08/19/17 at 1543 by RYNE HERNANDEZ RN scripts e-filed to [facility].
--- NOTE | 2017-08-19 16:15 | NUR ---
Social Work: Brief Note / Discharge EMR reviewed. Patient is on day 1 of hospitalization for TIA per H&P. Patient has been deemed medically stable by MD. MD has placed orders for patient to discharge home today. Transportation will be provided by spouse. SW met with spouse to discuss discharge planning. Spouse informed SW that patient has a [employer] caregiver who visits every Monday for 2 hours. Spouse states that he plans to get and increase of at least 2 days a week. Spouse states that he will call on Monday to get this arranged. Spouse has no additional concerns. Patient has no needs at time of discharge. Plan: Patient will discharge home today. Transportation will be provided by patient's spouse. Patient has no additional needs at this time. BREEZY Mcbride
== END 2017-08-19 15:35 | disposition home or self-care (01) ==
LOC: SED 11:22 → MOC 13:51
PROVIDERS: ADMIT Internal Medicine; ATTEND Internal Medicine
DX: R53.1 Weakness (principal); R47.89 Other speech disturbances; G20 Parkinson's disease; F02.80 Dementia in other diseases classified elsewhere, unspecified severity, without behavioral disturbance, psychotic disturbance, mood disturbance, and anxiety; I10 Essential (primary) hypertension; M80.00XD Age-related osteoporosis with current pathological fracture, unspecified site, subsequent encounter for fracture with routine healing; Z87.310 Personal history of (healed) osteoporosis fracture; Z86.73 Personal history of transient ischemic attack (TIA), and cerebral infarction without residual deficits; K21.9 Gastro-esophageal reflux disease without esophagitis; J30.9 Allergic rhinitis, unspecified; F32.9 Major depressive disorder, single episode, unspecified; F41.9 Anxiety disorder, unspecified; Z66 Do not resuscitate
CPT/HCPCS: 36415; 70450; 70549; 70553; 80048; 80053; 80061; 81000; 83036; 83735; 84484; 85025; 85610; 87086; 87088; 92526; 92610; 93005; 96360; 96372; 97162; 99285; A9585; G0378; G8978; G8979; G8980; J1644; J7030; J7050